=== PATIENT | male | born 1945 | race Caucasian/White ===

== ENCOUNTER 2024-09-07 06:52 | Emergency (ER) | payer MEDICARE, OTHER ==
[2024-09-07] MEDS ORDERED: Sodium Chloride 0.9% 10 ML Syringe FLUSH PRN (06:58)
[2024-09-07 07:27] LABS: BASOPHILS PERCENT AUTO 1.4 % (0.0-2.0); EOSINOPHILS PERCENT AUTO 2.8 % (0.0-5.0); HEMATOCRIT 44.6 % (39.0-49.0); HEMOGLOBIN 14.7 g/dL (13.1-16.8); IMMATURE GRAN ABSOLUTE AUTO 0.04 10^3/uL (0.00-0.04); IMMATURE GRAN PERCENT AUTO 0.6 % (0.0-0.4); LYMPHOCYTES ABSOLUTE AUTO 1.85 K/uL (0.50-3.50); LYMPHOCYTES PERCENT AUTO 25.6 % (10.0-50.0); MEAN CORPUSCULAR HEMOGLOBIN 29.6 pg (28.2-33.3); MEAN CORPUSCULAR VOLUME 89.9 fL (84.0-98.0); MONOCYTES ABSOLUTE AUTO 0.82 K/uL (0.00-1.00); MONOCYTES PERCENT AUTO 11.4 % (2.0-14.0); NEUTROPHILS ABSOLUTE AUTO 4.21 K/uL (1.40-7.00); NEUTROPHILS PERCENT AUTO 58.2 % (45.0-80.0); PLATELET COUNT,PLT 171 K/uL (150-350); RED BLOOD CELL COUNT 4.96 M/uL (4.33-5.41); RED CELL DISTRIBUTION WIDTH 13.6 % (11.2-14.1); WHITE BLOOD CELL COUNT,WBC 7.2 K/uL (4.0-10.2)
[2024-09-07 07:48] LABS: ALANINE AMINOTRANSFERASE,ALT 15 U/L (12-78); ALBUMIN 2.8 g/dL (3.4-5.0); ALKALINE PHOSPHATASE 116 IU/L (46-116); ASPARTATE AMNIOTRANSFERASE,AST 9 U/L (15-37); BILIRUBIN TOTAL 0.3 mg/dL (0.2-1.0); BLOOD UREA NITROGEN,BUN 27 mg/dL (7-18); CALCIUM 8.7 mg/dL (8.5-10.1); CHLORIDE,CL 107 mmol/L (98-107); CREATININE 1.18 mg/dL (0.51-1.17); GLUCOSE RANDOM 133 mg/dL (70-99); MAGNESIUM 2.1 mg/dL (1.8-2.4); POTASSIUM,K 3.9 mmol/L (3.5-5.1); PRO B-TYPE NATRIUR PEPT,BNPPRO 63 pg/mL (0-125); PROTEIN TOTAL,TP 6.3 g/dL (6.4-8.2); SODIUM,NA 141 mmol/L (136-145)
[2024-09-07 07:51] LABS: PROTHROMBIN TIME 10.4 SEC (9.0-11.1); PTT,PARTIAL THROMBOPLSTIN TIME 23.4 SEC (23.8-34.4)
[2024-09-07 07:54] LABS: ESTIMATED GFR 64 mL/min (>=60)
[2024-09-07] MEDS: Aspirin 81 MG Tab.Chew PO ONE (08:03)
[2024-09-07] MEDS: Iopamidol 755 Mg/ML 100 ML Bottle IVPUSH ONE (08:48)
[2024-09-07 09:17] LABS: LACTIC ACID 1.5 mmol/L (0.4-2.0)
== END 2024-09-07 10:50 ==
LOC: LL.ED 06:52
DX: I63.9 Cerebral infarction, unspecified (principal); Z88.0 Allergy status to penicillin; Z88.2 Allergy status to sulfonamides
CPT/HCPCS: 36415; 70450; 70496; 70498; 71045; 80053; 82947; 83605; 83735; 83880; 84484; 85025; 85610; 85730; 93005; 99285; A9270-GY; Q9967

== ENCOUNTER 2024-10-11 17:23 | Emergency (ER) | payer MEDICARE, OTHER ==
[2024-10-11] MEDS ORDERED: Sodium Chloride 0.9% 10 ML Syringe FLUSH PRN (17:36)
[2024-10-11 17:45] LABS: BASOPHILS ABSOLUTE AUTO 0.12 K/uL (0.00-0.20); BASOPHILS PERCENT AUTO 1.3 % (0.0-2.0); EOSINOPHILS ABSOLUTE AUTO 0.21 K/uL (0.00-0.50); EOSINOPHILS PERCENT AUTO 2.3 % (0.0-5.0); HEMATOCRIT 46.9 % (39.0-49.0); HEMOGLOBIN 15.7 g/dL (13.1-16.8); IMMATURE GRAN ABSOLUTE AUTO 0.02 10^3/uL (0.00-0.04); IMMATURE GRAN PERCENT AUTO 0.2 % (0.0-0.4); LYMPHOCYTES PERCENT AUTO 33.1 % (10.0-50.0); MEAN CORPUSCULAR HEMOGLOBIN 29.8 pg (28.2-33.3); MEAN CORPUSCULAR HGB CONC 33.5 g/dL (31.7-36.0); MONOCYTES ABSOLUTE AUTO 1.16 K/uL (0.00-1.00); MONOCYTES PERCENT AUTO 12.8 % (2.0-14.0); NEUTROPHILS ABSOLUTE AUTO 4.54 K/uL (1.40-7.00); NEUTROPHILS PERCENT AUTO 50.3 % (45.0-80.0); PLATELET COUNT,PLT 177 K/uL (150-350); RED BLOOD CELL COUNT 5.27 M/uL (4.33-5.41); RED CELL DISTRIBUTION WIDTH 13.5 % (11.2-14.1); WHITE BLOOD CELL COUNT,WBC 9.1 K/uL (4.0-10.2)
[2024-10-11] MEDS: Lactated Ringers 1,000 ML IV SCH (18:00)
[2024-10-11 18:07] LABS: INR 1.1 (0.9-1.1); PROTHROMBIN TIME 11.1 SEC (9.0-11.1); PTT,PARTIAL THROMBOPLSTIN TIME 23.6 SEC (23.8-34.4)
[2024-10-11 18:08] LABS: ALANINE AMINOTRANSFERASE,ALT 28 U/L (12-78); ALKALINE PHOSPHATASE 138 IU/L (46-116); ANION GAP 6.8 meq/L (7-15); ASPARTATE AMNIOTRANSFERASE,AST 16 U/L (15-37); BILIRUBIN TOTAL 0.7 mg/dL (0.2-1.0); BLOOD UREA NITROGEN,BUN 24 mg/dL (7-18); CALCIUM 9.1 mg/dL (8.5-10.1); CARBON DIOXIDE,CO2 30.2 mmol/L (21.0-32.0); CHLORIDE,CL 105 mmol/L (98-107); CREATININE 1.23 mg/dL (0.51-1.17); ESTIMATED GFR 60 mL/min (>=60); GLUCOSE RANDOM 86 mg/dL (70-99); POTASSIUM,K 3.9 mmol/L (3.5-5.1); PROTEIN TOTAL,TP 6.3 g/dL (6.4-8.2); SODIUM,NA 142 mmol/L (136-145)
== END 2024-10-11 19:00 ==
LOC: LL.ED 17:23
DX: I95.9 Hypotension, unspecified (principal); E86.0 Dehydration; I10 Essential (primary) hypertension; E78.00 Pure hypercholesterolemia, unspecified; E03.9 Hypothyroidism, unspecified; K21.9 Gastro-esophageal reflux disease without esophagitis; Z79.899 Other long term (current) drug therapy; Z79.890 Hormone replacement therapy; Z79.82 Long term (current) use of aspirin; Z88.2 Allergy status to sulfonamides; Z88.0 Allergy status to penicillin
CPT/HCPCS: 36415; 70450; 80053; 82947; 84484; 85025; 85610; 85730; 93005; 93010; 96360; 99284; 99285-25; J7120

== ENCOUNTER 2024-11-29 17:18 | Emergency (ER) | payer MEDICARE, OTHER ==
[~2024-11-29 17:18] MED LIST: Sodium Chloride 0.9% 10 ML Syringe FLUSH PRN
[2024-11-29] MEDS: Lactated Ringers 1,000 ML IV ONE (17:24)
[2024-11-29 17:27] LABS: BASOPHILS ABSOLUTE AUTO 0.11 K/uL (0.00-0.20); BASOPHILS PERCENT AUTO 1.5 % (0.0-2.0); EOSINOPHILS ABSOLUTE AUTO 0.23 K/uL (0.00-0.50); EOSINOPHILS PERCENT AUTO 3.1 % (0.0-5.0); IMMATURE GRAN ABSOLUTE AUTO 0.02 10^3/uL (0.00-0.04); IMMATURE GRAN PERCENT AUTO 0.3 % (0.0-0.4); LYMPHOCYTES ABSOLUTE AUTO 2.18 K/uL (0.50-3.50); LYMPHOCYTES PERCENT AUTO 29.1 % (10.0-50.0); MONOCYTES ABSOLUTE AUTO 1.08 K/uL (0.00-1.00); MONOCYTES PERCENT AUTO 14.4 % (2.0-14.0); NEUTROPHILS ABSOLUTE AUTO 3.86 K/uL (1.40-7.00); NEUTROPHILS PERCENT AUTO 51.6 % (45.0-80.0); PLATELET COUNT,PLT 163 K/uL (150-350); RED BLOOD CELL COUNT 5.16 M/uL (4.33-5.41); RED CELL DISTRIBUTION WIDTH 14.2 % (11.2-14.1); WHITE BLOOD CELL COUNT,WBC 7.5 K/uL (4.0-10.2)
[2024-11-29 17:36] LABS: INR 1.1
[2024-11-29 17:57] LABS: ALANINE AMINOTRANSFERASE,ALT 20.0 U/L (12-78); ASPARTATE AMNIOTRANSFERASE,AST 16.0 U/L (15-37); BILIRUBIN TOTAL 0.6 mg/dL (0.2-1.0); BLOOD UREA NITROGEN,BUN 18.0 mg/dL (7-18); CARBON DIOXIDE,CO2 26.3 mmol/L (21.0-32.0); CHLORIDE,CL 107.0 mmol/L (98-107); CREATININE 1.16 mg/dL (0.51-1.17); EST CRCL DRUG DOSING (CG) 51.59 mL/min; ESTIMATED GFR 65.0 mL/min (>=60); GLUCOSE RANDOM 82.0 mg/dL (70-99); POTASSIUM,K 3.8 mmol/L (3.5-5.1); PRO B-TYPE NATRIUR PEPT,BNPPRO 54.0 pg/mL (0-125); PROTEIN TOTAL,TP 6.2 g/dL (6.4-8.2); SODIUM,NA 141.0 mmol/L (136-145)
== END 2024-11-29 18:25 | disposition home or self-care (01) ==
LOC: LL.ED 17:18
DX: R07.89 Other chest pain (principal); K21.9 Gastro-esophageal reflux disease without esophagitis; E78.00 Pure hypercholesterolemia, unspecified; Z79.890 Hormone replacement therapy; I10 Essential (primary) hypertension; E03.9 Hypothyroidism, unspecified; Z88.0 Allergy status to penicillin; Z88.2 Allergy status to sulfonamides; Z79.82 Long term (current) use of aspirin; Z79.899 Other long term (current) drug therapy
CPT/HCPCS: 36415; 71045; 80053; 83735; 83880; 84484; 85025; 85610; 93005; 96360; 99285; A9270; J7120